=== PATIENT | female | born 1960 | race Caucasian/White ===

== ENCOUNTER → 2017-10-13 | Outpatient (CLI) | payer OTHER ==
[~2017-10-13] MED LIST: ATOR10TA15 PO; CARV3.12 PO; CHLORHEXIDINE GLUCONATE 2 % 1 PACK (2 CLOTHS) TOPICAL PRN; COQ-100C5 PO; LACTATED RINGER'S 1000 ML IV PRN; LIDOCAINE HCL 1% PF 5 ML SYRINGE OTHER ONE; LOSA25TA PO; METOPROLOL TARTRATE 25 MG TAB PO PRN; MILK140C PO; POVIDONE IODINE 5% (ANTISEPSIS KIT) 4 APPLICATIONS EACH NARE PRN; PROPOFOL 200 MG/20 ML AMP IV ONE; REDCAP9 PO; SODIUM CHLORID 0.9% 500 ML IV PRN
--- NOTE | 2017-10-13 12:45 | EKG ---
Date Performed: 10/13/2017 Time Performed: 10:27:04 PTAGE: 57 years EKG: Sinus rhythm LEFT VENTRICULAR HYPERTROPHY AND ST-T CHANGE ABNORMAL ECG NO PREVIOUS TRACING DOCTOR: Junior Arana Interpretating Date/Time 10/13/2017 12:45:08
--- NOTE | 2017-10-13 12:51 | GIPROC ---
[facility] [address] [facility]. [facility], [address] EGD PROCEDURE REPORT EXAM DATE: 10/13/2017 PATIENT NAME: Ghazala Hatch I MR #: [id number] BIRTHDATE: 1960 ATTENDING: Conor Singh MD ORDER #: [id number] STUDENT FINANCE ADVISOR: Demetra Mckenna and Bobby Bauer STATUS: outpatient INDICATIONS: The patient is a 57 yr old female here for an EGD due to heartburn, dysphagia for solids in the mid-retrosternal region. PROCEDURE PERFORMED: EGD/biopsies/wire insertion/esophageal dilation. MEDICATIONS: Per Anesthesia. TOPICAL ANESTHETIC: CONSENT: The patient understands the risks and benefits of the procedure and understands that these risks include, but are not limited to: sedation, allergic reaction, infection, perforation and/or bleeding. Alternative means of evaluation and treatment include, among others: physical exam, x-rays, and/or surgical intervention. The patient elects to proceed with this endoscopic procedure. medical equipment was checked for proper function. Hand hygiene and appropriate measures for infection prevention was taken. After the risks, benefits and alternatives of the procedure were thoroughly explained, Informed consent was verified, confirmed and timeout was successfully executed by the treatment team. The patient was anesthetized with topical anesthesia and the Pentax [id number] endoscope was introduced through the mouth and advanced to the second portion of the duodenum. Retroflexion was performed The gastroscope was then slowly withdrawn and removed. Subtle inflammatory-appearing nodules were noted at the GE junction, suggestive of mild reflux irritation. The esophageal mucosa appeared normal; biopsies were taken to check for eosinophilic esophagitis/lymphocytic esophagitis. The stomach and duodenum appeared normal. Over a guidewire a 15mm Savary dilator was passed with essentially no resistance met. A 17mm dilator was passed with mild to moderate resistance met along the length of the esophagus. ADVERSE EVENTS: There were no complications. IMPRESSIONS: Reflux-type inflammatory EG junction nodules. Normal esophageal mucosa; biopsied. 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 RECOMMENDATIONS: Anti-reflux regimen, begin ranitidine or Zantac, 150mg, by mouth, twice/day. Avoid cold fluid/foods and drink warm liquid, especially before and with pills and meals. PATIENT CONDITION: stable DISPOSITION: Home REPEAT EXAM: Return as needed for EGD with dilatation Conor Singh MD eSigned: Conor Singh MD 10/13/2017 12:51 PM cc: Dr. Tena
--- NOTE | 2017-10-13 13:00 | GIPROC ---
[facility] [address] [facility]. [facility], [address] COLONOSCOPY PROCEDURE REPORT EXAM DATE: 10/13/2017 PATIENT NAME: Ghazala Hatch I MR #: [id number] BIRTHDATE: 1960 ENDOSCOPIST: Conor Singh MD ORDER #: [id number] MATE FOURTH: Demetra Mckenna and Bobby Bauer STATUS: outpatient INDICATIONS: The patient is a 57 yr old female here for a colonoscopy due to Altered bowel pattern with diarrhea much more often than constipation. She's never undergone screening colonoscopy. PROCEDURE PERFORMED: colonoscopy/biopsies/polypectomies MEDICATIONS: Per Anesthesia. PREP QUALITY: good ESTIMATED BLOOD LOSS: None CONSENT: The patient understands the risks and benefits of the procedure and understands that these risks include, but are not limited to: sedation, allergic reaction, infection, perforation and/or bleeding. Alternative means of evaluation and treatment include, among others: physical exam, x-rays, and/or surgical intervention. The patient elects to proceed with this endoscopic procedure. medical equipment was checked for proper function. Hand hygiene and appropriate measures for infection prevention was taken. After the risks, benefits and alternatives of the procedure were thoroughly explained, Informed consent was verified, confirmed and timeout was successfully executed by the treatment team. A digital exam was performed; anal sphincter tone was somewhat diminished. The Pentax [id number] endoscope was introduced through the anus and advanced to the cecum, which was identified by both the appendix and ileocecal valve. The instrument was then slowly withdrawn as the colon was fully examined. Two transverse colon polyps, two sigmoid polyps and three rectal polyps were removed with snare cautery. Random colon biopsies were taken to check for microscopic colitis. A single small proximal ascending colon diverticulum was noted. The scope was then completely withdrawn from the patient and the procedure terminated. ADVERSE EVENTS: There were no complications. IMPRESSIONS: Five polyps, snared. NL mucosa: biopsied. Single diverticulum RECOMMENDATIONS: Await biopsy results. Biopsy results will not be ready for 7-10 days. If you don't hear from us in two weeks, call our office for results. RECALL: Conor Singh MD eSigned: Conor Singh MD 10/13/2017 12:59 PM cc: Dr. Tena PATIENT NAME: Ghazala Hatch I MR#: [id number]
[2017-10-13 13:22] VITALS: BP 142/95; PULSE 73; RESP 20; TEMP 97.8; O2SAT 96
== END ==
LOC: HEND 09:49
DX: R19.4 Change in bowel habit (principal); R19.7 Diarrhea, unspecified; D12.3 Benign neoplasm of transverse colon; D12.5 Benign neoplasm of sigmoid colon; K62.1 Rectal polyp; R12 Heartburn; R13.10 Dysphagia, unspecified; R94.31 Abnormal electrocardiogram [ECG] [EKG]
CPT/HCPCS: 00740; 00810; 43239; 43248; 45380; 45385; 88305; 93005; C1769

== ENCOUNTER → 2017-10-21 | Outpatient (CLI) | payer OTHER ==
[~2017-10-21] MED LIST changes: -CHLORHEXIDINE GLUCONATE 2 % 1 PACK (2 CLOTHS) TOPICAL PRN; +FERR325T18 PO; -LACTATED RINGER'S 1000 ML IV PRN; -LIDOCAINE HCL 1% PF 5 ML SYRINGE OTHER ONE; -METOPROLOL TARTRATE 25 MG TAB PO PRN; +MULT-65 PO; -POVIDONE IODINE 5% (ANTISEPSIS KIT) 4 APPLICATIONS EACH NARE PRN; -PROPOFOL 200 MG/20 ML AMP IV ONE; -SODIUM CHLORID 0.9% 500 ML IV PRN; +TURM500C3 PO; +VITA1000 PO
--- NOTE | 2017-10-21 16:06 | RADRPT ---
EXAM DATE/TIME: 10/21/2017 13:35 [place] COMPARISON: No previous studies available for comparison. INDICATIONS : Evaluate for pneumonia, pneumothorax or communicable disease. Pre op hysterectomy. MEDICAL HISTORY : Hypertension. SURGICAL HISTORY : None. ENCOUNTER: Initial ACUITY: 1 day PAIN SCORE: 0/10 LOCATION: Bilateral chest FINDINGS: PA and lateral views of the chest demonstrate the lungs to be symmetrically aerated without evidence of mass, infiltrate or effusion. The cardiomediastinal contours are unremarkable. Osseous structure s are intact. CONCLUSION: 1. No acute cardiopulmonary disease. Joe London MD on October 21, 2017 at 16:05 Board Certified Radiologist. This report was verified electronically.
--- NOTE | 2017-10-23 13:08 | EKG ---
Date Performed: 10/21/2017 Time Performed: 13:10:00 PTAGE: 57 years EKG: POSSIBLE LVH ST & T-WAVE CHANGES WHICH MAY BE DUE TO LVH BORDERLINE ECG Since PREVIOUS TRACING , no significant change noted PREVIOUS TRACIN10/13/2017 10.27 DOCTOR: Gallito Friedman Interpretating Date/Time 10/23/2017 13:06:03
== END ==
LOC: CPRE 12:59
PROVIDERS: ATTEND Obstetrics & Gynecology
DX: Z01.810 Encounter for preprocedural cardiovascular examination (principal); Z01.811 Encounter for preprocedural respiratory examination; Z01.812 Encounter for preprocedural laboratory examination; D25.9 Leiomyoma of uterus, unspecified; D36.9 Benign neoplasm, unspecified site; I10 Essential (primary) hypertension; R94.31 Abnormal electrocardiogram [ECG] [EKG]
CPT/HCPCS: 71020; 93005

== ENCOUNTER 2017-10-27 10:50 | Inpatient (IN) | payer OTHER ==
[~2017-10-27] VITALS: Ht 154.9 cm; Wt 57.9 kg
[2017-10-27] MEDS ORDERED: POVIDONE IODINE 5% (ANTISEPSIS KIT) 4 APPLICATIONS EACH NARE PRN (12:00)
[2017-10-27] MEDS ORDERED: INSULIN HUMAN REGULAR 1,000 UNITS/10 ML VIAL SQ PRN (12:00)
[2017-10-27] MEDS ORDERED: METOPROLOL TARTRATE 25 MG TAB PO PRN (12:00)
[2017-10-27] MEDS ORDERED: CHLORHEXIDINE GLUCONATE 2 % 1 PACK (2 CLOTHS) TOPICAL PRN (12:00)
[2017-10-27] MEDS ORDERED: SODIUM CHLORID 0.9% 500 ML IV PRN (12:00)
[2017-10-27] MEDS ORDERED: LACTATED RINGER'S 1000 ML IV PRN (12:00)
[2017-10-27] MEDS ORDERED: ACETAMINOPHEN 1000 MG/100 ML 100 ML IV ONE (14:32)
[2017-10-27] MEDS ORDERED: ceFAZolin INJ 1,000 MG VIAL IV ONE (16:26)
[2017-10-27] MEDS ORDERED: oxyCODONE/ACETAMINOPHEN 5 MG/325 MG TAB PO PRN (17:30)
[2017-10-27] MEDS ORDERED: ZOLPIDEM TARTRATE 5 MG TAB PO PRN (17:30)
[2017-10-27] MEDS ORDERED: LORazepam 0.5 MG TAB PO PRN (17:30)
[2017-10-27] MEDS ORDERED: ACETAMINOPHEN 325 MG TAB PO PRN (17:30)
[2017-10-27] MEDS ORDERED: DOCUSATE SODIUM 100 MG CAP PO PRN (17:30)
[2017-10-27] MEDS ORDERED: ONDANSETRON HCL 4 MG/2 ML VIAL IV PUSH PRN (17:30)
[2017-10-27] MEDS ORDERED: diphenhydrAMINE HCL 50 MG/ML VIAL IV PUSH PRN (17:30)
[2017-10-27] MEDS ORDERED: SODIUM CHLORIDE 0.9% FLUSH 10 ML FLUSH IV FLUSH PRN (17:30)
[2017-10-27] MEDS ORDERED: MORPHINE SULFATE 4 MG/ML INJ IV PUSH PRN (17:30)
[2017-10-27] MEDS ORDERED: *morphine SULFATE 8 MG/ML PERIprocedure ONLY ONE ×2 (18:05→18:21)
[2017-10-27] MEDS: LACTATED RINGER'S 1000 ML INJ 1,000 ML IV SCH (18:30)
[2017-10-27] MEDS ORDERED: PILL SPLITTER OTHER PRN (18:45)
[2017-10-27] MEDS ORDERED: DO NOT ADM ANY ANTICOAGULANT DRUGS PRN (19:30)
[2017-10-27 20:00] VITALS: BP 100/62; PULSE 59; RESP 16; TEMP 98; O2SAT 94
[2017-10-28] VITALS: BP 112/83; PULSE 72; RESP 18; TEMP 97.9; O2SAT 95
[2017-10-28] MEDS: LACTATED RINGER'S 1000 ML INJ 1,000 ML IV SCH ×3 (02:00→20:58)
[2017-10-28 04:00] VITALS: BP 152/97; PULSE 87; RESP 16; TEMP 97.6; O2SAT 92
[2017-10-28 06:12] LABS: AUTOMATED NEUTROPHIL # 16.2 TH/MM3 (1.8-7.7); BASOPHIL % 0.1 % (0.0-2.0); HEMATOCRIT 40.6 % (35.0-46.0); HEMO FLAGS DIFF FINAL; LYMPH % 6.1 % (9.0-44.0); LYMPHOCYTE # 1.1 TH/MM3 (1.0-4.8); MEAN CELL VOLUME 101.2 FL (80.0-100.0); MEAN CORPUSCULAR HEMOGLOBIN 34.3 PG (27.0-34.0); MEAN CORPUSCULAR HGB CONC 33.9 % (32.0-36.0); MONO % 4.4 % (0.0-8.0); NEUT % 89.4 % (16.0-70.0); PLATELET COUNT 326 TH/MM3 (150-450); RED BLOOD COUNT 4.01 MIL/MM3 (4.00-5.30); RED CELL DISTRIBUTION WIDTH 13.5 % (11.6-17.2); WHITE BLOOD COUNT 18.1 TH/MM3 (4.0-11.0)
[2017-10-28 08:48] VITALS: BP 135/82; PULSE 82; RESP 16; TEMP 97.9; O2SAT 96
[2017-10-28] MEDS: SODIUM CHLORIDE 0.9% FLUSH 10 ML FLUSH IV FLUSH SCH ×2 (09:00→20:58)
[2017-10-28] MEDS: CARVEDILOL 3.125 MG TAB PO SCH ×2 (09:06→21:06)
[2017-10-28] MEDS: LOSARTAN 25 MG TAB PO SCH (09:06)
[2017-10-28] MEDS: oxyCODONE/ACETAMINOPHEN 10 MG/325 MG TAB PO PRN ×3 (09:11→23:43)
--- NOTE | 2017-10-28 12:10 | MP ---
cc: Winifred SARABIA MD DATE OF SURGERY: October 27, 2017 PREOPERATIVE DIAGNOSIS 1. Large dermoid cyst of the ovary. 2. Uterine fibroids. 3. Abdominal pain. POSTOPERATIVE DIAGNOSIS 1. Large dermoid cyst of the ovary. 2. Uterine fibroids. 3. Abdominal pain. PROCEDURE D&C, total abdominal hysterectomy, bilateral salpingo-oophorectomy. ANESTHESIA General endotracheal intubation. SURGEON Winifred Sarabia MD FINDINGS Examination under anesthesia, there was a large central pelvic mass extending almost to the umbilicus, could not tell if this was due to the dermoid or to the enlarged uterus or to the fibroids. The D&C revealed a minimal amount of tissue. The laparotomy revealed a large right ovarian mass 10-12 cm in diameter. The uterus was slightly enlarged at 10 weeks size with several large fibroids. The contralateral ovary was normal. The tubes were normal length and caliber. The posterior and anterior cul-de-sacs were normal. The upper abdomen was normal. COMPLICATIONS None. COUNTS Counts were correct. ESTIMATED BLOOD LOSS 100 ccs. FLUIDS Crystalloids. CONDITION The patient tolerated the procedure well and went to the recovery room in good condition. PROCEDURE The patient was taken to the operating room, identified by name band and verbally, given a general anesthetic, prepped and draped in the dorsal lithotomy position for a D&C with frozen section. I wanted to accomplish this incase the uterus was so large that we would need to transect the cervix to remove the uterus because of the large fibroids. Once this had been accomplished a time-out was taken and examination under anesthesia was carried out with the above findings. A weighted speculum was placed in the vagina. The anterior lip of the cervix was grasped with a single-tooth tenaculum. The cervix was serially dilated without difficulty and the #1 sharp curette was used to obtain endometrial curettings. These were sent for frozen section. She was placed on the operating room table and her legs were taken down. She was then prepped and draped for a total abdominal hysterectomy. Frozen section came back benign and we proceeded with a Pfannenstiel incision. The incision was made in the skin, taken down to the fascia with small bleeders coagulated with the Bovie. The fascia was taken off the rectus muscle by blunt and sharp dissection. The rectus muscles were spread bluntly and the peritoneum was entered under direct vision without difficulty. The incision was extended with care to avoid the urinary bladder and the bowels were packed back and the patient in Trendelenburg position. A large right ovary was immediately evident and the infundibulopelvic ligament was quite elongated and the infundibulopelvic ligament was taken close to the ovary with two Pricilla clamps and it was free tied and stick tied with 0 Vicryl. At this point we took off the fallopian tube along the mesosalpinx and handed the specimen off to the failure analysis technician. At this point with the bowels packed back we placed a self-retaining retractor and we began with the round ligaments taking them down bilaterally with 0 Vicryl pop offs. The bladder flap was created in the usual fashion and the bladder pushed out of harm's way. The broad ligament was taken down on the right side and on the left side the infundibulopelvic was identified and taken down with 0 Vicryl. Once the broad ligament was taken down to the level of the internal cervical os, the uterine vessels were skeletonized and taken with two Cris clamps and doubly tied. At this point we took down the cardinal ligament with Griselda clamps into the level of the vagina. Once this had been accomplished the vagina was sharply incised with a scalpel and the specimen removed with Martita scissors. The cuff was grasped with some Kochers and two Torres's angle sutures were placed with 0 Vicryl pop offs and the cuff was closed in interrupted fashion with 0 Vicryl pop offs. The pelvis was irrigated with a large amount of warm fluid at this time. Hemostasis was excellent at this point, so we went ahead and removed the packing, did upper abdominal exploration with the above findings and the rectus muscles were reapproximated with 0 Vicryl in a running fashion. The fascia was repaired with a #1 PDS in a running fashion. Subcu was repaired with 3-0 Vicryl and skin was repaired with 4-0 Monocryl in subcuticular fashion. At this point she tolerated the procedure well and went to the recovery room in good condition. RMD LUIS ARMANDO Negron/MONIQUE :33 AM /11:45 AM
[2017-10-28 12:46] VITALS: BP 159/94; PULSE 72; RESP 16; TEMP 98.3; O2SAT 97
[2017-10-28 15:50] VITALS: BP 139/73; PULSE 98; RESP 14; TEMP 98.1
--- NOTE | 2017-10-28 15:59 | HHI.PR ---
Subjective Remarks Doing well, pain is well controlled, Objective Vital Signs Vital Signs Date Time Temp Pulse Resp B/P (MAP) Pulse Ox O2 Delivery O2 Flow Rate FiO2 10/28/17 12:46 98.3 72 16 159/94 (115) 97 10/28/17 08:48 97.9 82 16 135/82 (99) 96 10/28/17 04:00 97.6 87 16 152/97 (115) 92 10/28/17 00:00 97.9 72 18 112/83 (93) 95 10/27/17 20:00 98.0 59 16 100/62 (75) 94 10/27/17 19:15 97.7 68 12 108/64 (79) 95 Nasal Cannula 2 10/27/17 19:00 69 14 104/70 (81) 96 Nasal Cannula 2 10/27/17 18:45 63 15 109/69 (82) 96 Nasal Cannula 2 10/27/17 18:30 66 15 115/76 (89) 95 Nasal Cannula 2 10/27/17 18:15 63 14 119/75 (90) 95 Nasal Cannula 2 10/27/17 18:00 62 13 123/76 (92) 97 Nasal Cannula 2 10/27/17 17:45 97.8 61 15 122/76 (91) 98 Nasal Cannula 3 I/O 10/27/17 10/27/17 10/27/17 10/28/17 10/28/17 10/28/17 07:00 15:00 23:00 07:00 15:00 23:00 Intake Total 2120 ml Output Total 425 ml 925 ml Balance 1695 ml -925 ml Intake IV Total 120 ml Other 2000 ml Output Urine Total 325 ml 925 ml Estimated Blood Loss 100 ml Result Diagram: 10/28/17 0507 Objective Remarks Chest is clear, regular rate and rhythm. Abdomen is soft and non-distended. Incision is clean and dry. Ext no CCE. A/P Assessment and Plan Post Op Day 1 Doing well she will get up ambulate and shower today consider dc in 2 days Pt seen by myself and Lili Chen Oct 28, 2017 15:59
[2017-10-28 20:00] VITALS: BP 141/80; PULSE 82; RESP 18; TEMP 98.5; O2SAT 93
[2017-10-29] VITALS: BP 131/82; PULSE 88; RESP 18; TEMP 98.2; O2SAT 92
[2017-10-29 04:00] VITALS: BP 138/78; PULSE 84; RESP 18; TEMP 98; O2SAT 96
[2017-10-29 08:00] VITALS: BP_SYST 148; BP_SYST 171; BP_DIAS 91; BP_DIAS 98; PULSE 95; RESP 20; TEMP 98.3; O2SAT 94
[2017-10-29] MEDS: CARVEDILOL 3.125 MG TAB PO SCH (08:34)
[2017-10-29] MEDS: LOSARTAN 25 MG TAB PO SCH (08:34)
[2017-10-29] MEDS ORDERED: BISACODYL 10 MG SUPP RECTAL ONE (08:45)
--- NOTE | 2017-10-29 09:58 | HHI.PR ---
Subjective Remarks Doing well pain is well controlled, eating well has not had BM. Objective Vital Signs Vital Signs Date Time Temp Pulse Resp B/P (MAP) Pulse Ox O2 Delivery O2 Flow Rate FiO2 10/29/17 08:00 98.3 95 20 171/98 (122) 94 148/91 (110) 10/29/17 04:00 98.0 84 18 138/78 (98) 96 10/29/17 00:00 98.2 88 18 131/82 (98) 92 10/28/17 20:00 98.5 82 18 141/80 (100) 93 10/28/17 15:50 98.1 98 14 139/73 (95) 10/28/17 12:46 98.3 72 16 159/94 (115) 97 I/O 10/28/17 10/28/17 10/28/17 10/29/17 10/29/17 10/29/17 07:00 15:00 23:00 07:00 15:00 23:00 Intake Total 730 ml Output Total 925 ml 600 ml Balance -925 ml 130 ml Intake Oral 480 ml IV Total 250 ml Output Urine Total 925 ml 600 ml Result Diagram: 10/28/17 0507 Objective Remarks Chest is clear, regular rate and rhythm. Abdomen is soft and non-distended. Incision is clean and dry, slight bruising noted above incision Ext no CCE. A/P Assessment and Plan Post Op Day 2 Doing well pain well controlled with oral pain medication ambulating without difficulty Dulcolax suppository ordered dc home today, pt to f/u in 1 week Pt seen by myself and Lili Chen Oct 29, 2017 09:58
[2017-10-29] MEDS ORDERED: PNEUMOCOCCAL POLYVALENT INJ 25 MCG/0.5 ML SYR IM ONE (10:00)
--- NOTE | 2017-10-29 10:12 | HHI.DS ---
Admission Date Oct 27, 2017 at 10:50 Discharge Date: Oct 29, 2017 Admitting Diagnosis large dermoid cyst Left ovary uterine fibroids abdominal pain Diagnosis: (1) S/P dilation and curettage ICD Codes: Z98.890 - Other specified postprocedural states (2) S/P total abdominal hysterectomy and bilateral salpingo-oophorectomy ICD Codes: Z90.710 - Acquired absence of both cervix and uterus; Z90.722 - Acquired absence of ovaries, bilateral; Z90.79 - Acquired absence of other genital organ(s) Brief History pt admitted for surgery surgery went well routine care Hospital Course routine post surgical care Pt Condition on Discharge: Good Discharge Disposition: Discharge Home Discharge Instructions Diet Instructions: As Tolerated, No Restrictions Additional Diet Instructions: Drink at least 8 - 16 oz bottles of water a day Activities You Can Perform: Shower Only-No Bath Activities to Avoid: Prolonged Standing, Strenuous Activity, Sexual Activity Additional Activity Instruc.: No driving until off pain medications Follow up Referrals: DECORATING INSTRUCTOR - 1 Week @ [facility] [place] Continued Medications: Atorvastatin (Atorvastatin) 10 Mg Tab 10 MG PO HS for Cholesterol Management, #30 TAB 0 Refills Carvedilol (Carvedilol) 3.125 Mg Tab 3.125 MG PO BID, #60 TAB 0 Refills Cholecalciferol (Vitamin D-1000) 1,000 Unit Tab 1000 UNITS PO DAILY for Nutritional Supplement, #1 BOTTLE 0 Refills Coenzyme Q10 (Ubidecarenone) (Coq-10 Tr) 100 Mg Cap 1 TAB PO DAILY Ferrous Sulfate (Ferrous Sulfate) 325 Mg (65 Mg Iron) Tablet 325 MG PO DAILY for Nutritional Supplement, #30 TAB 0 Refills Losartan (Losartan) 25 Mg Tab 25 MG PO DAILY for Blood Pressure Management, #30 TAB 0 Refills Milk Thistle (Milk Thistle) 140 Mg Cap 140 PO DAILY Multiple Vitamin (Multi-Vitamin Daily) 1 Tab Tab 1 TAB PO DAILY for Nutritional Supplement, TAB 0 Refills Red Yeast Rice Extract (Red Yeast Rice Extract) 600 Mg Cap 1 CAPLET PO DAILY Turmeric (Curcuma Longa) (Turmeric) 450 Mg-50 Mg Cap 1 CAP PO DAILY Lili Plata Oct 29, 2017 10:12
== END 2017-10-29 11:43 | disposition home or self-care (01) | DRG 743 ==
LOC: HSDI 10:50 → H1EA 20:01
PROVIDERS: ADMIT Obstetrics & Gynecology; ATTEND Obstetrics & Gynecology
PROC: 0UT20ZZ Resection of Bilateral Ovaries, Open Approach (ICD-10-PCS; 2017-10-27)
PROC: 0UT70ZZ Resection of Bilateral Fallopian Tubes, Open Approach (ICD-10-PCS; 2017-10-27)
PROC: 0UTC0ZZ Resection of Cervix, Open Approach (ICD-10-PCS; 2017-10-27)
PROC: 0UT90ZZ Resection of Uterus, Open Approach (ICD-10-PCS; principal; 2017-10-27 14:42)
DX: D25.9 Leiomyoma of uterus, unspecified (principal); K76.0 Fatty (change of) liver, not elsewhere classified; I10 Essential (primary) hypertension; D27.0 Benign neoplasm of right ovary; N87.9 Dysplasia of cervix uteri, unspecified; K21.9 Gastro-esophageal reflux disease without esophagitis; F41.9 Anxiety disorder, unspecified; Z23 Encounter for immunization; Z87.891 Personal history of nicotine dependence; Z88.6 Allergy status to analgesic agent; Z91.040 Latex allergy status
CPT/HCPCS: 85025; 86850; 86900; 86901; 86920; 86922; 88305; 88307; 88331; 90732; 94150; J0131; J0690; J2270; J7120